=== PATIENT | female | born 1940 | race African-American/Black ===

== ENCOUNTER 2017-10-02 12:39 | Outpatient (CLI) | payer MEDICARE | END 2017-10-02 12:40 | disposition home or self-care (01) | LOC: BICMAMMO 12:39 | PROVIDERS: ATTEND Family Medicine | DX: Z12.31 Encounter for screening mammogram for malignant neoplasm of breast (principal); N64.89 Other specified disorders of breast | CPT/HCPCS: 77063; 77067 ==

== ENCOUNTER 2017-10-02 14:09 | Outpatient (CLI) | payer MEDICARE | END 2017-10-02 14:10 | disposition home or self-care (01) | LOC: BICCT 14:09 | PROVIDERS: ATTEND Anesthesiology Pain Medicine | DX: M47.26 Other spondylosis with radiculopathy, lumbar region (principal) | CPT/HCPCS: 72131 ==

== ENCOUNTER 2017-10-09 08:27 | Outpatient (CLI) | payer MEDICARE | END 2017-10-09 08:28 | disposition home or self-care (01) | LOC: BICMAMMO 08:27 | PROVIDERS: ATTEND Family Medicine | DX: R92.2 Inconclusive mammogram (principal) | CPT/HCPCS: 77065; G0279 ==